=== PATIENT | male | born 1940 | race Caucasian/White ===

== ENCOUNTER 2018-07-30 16:57 | Outpatient (CLI) | payer MEDICARE | END 2018-07-30 16:58 | disposition critical access hospital (66) | LOC: EMS 16:57 | PROVIDERS: ATTEND Surgery | DX: R56.9 Unspecified convulsions (principal) | CPT/HCPCS: A0425; A0427 ==

== ENCOUNTER 2018-07-30 17:27 | Observation (INO) | payer MEDICARE, OTHER ==
[2018-07-30] MEDS ORDERED: LORazepam 2 MG/ML VIAL IVP STA ×2 (17:51→20:09)
--- NOTE | 2018-07-30 17:59 | ED Physician Documentation ---
History of Present Illness - Stated complaint Stated Complaint: SZ - Chief complaint Chief Complaint: Neuro - History obtained from History obtained from: Patient, EMS - History of Present Illness Timing: Today Pain level max: 0 Pain level now: 0 Improved by: nothing Worsened by: nothing - Additonal information Additional information: Patient is a 77-year-old male who drank a half of 1/5 of vodka per day. States has not drank any etoh today. Was riding in the car with a friend. Friend states seizure like activity for 30 seconds and brief post ictal state per EMS. Patient with no complaints. Review of Systems Ten Systems: 10 systems reviewed and negative Constitutional: denies: Fever, Chills Ears: denies: Ear pain Nose: denies: Rhinorrhea / runny nose, Congestion Throat: denies: Sore throat Cardiac: denies: Chest pain / pressure Respiratory: denies: Cough GI: denies: Nausea, Vomiting, Diarrhea Skin: denies: Rash Musculoskeletal: denies: Neck pain, Back pain Neurologic: denies: Headache PD PAST MEDICAL HISTORY - Past Medical History Past Medical History: Yes Neuro: CVA, Head injury - Past Surgical History Past Surgical History: Yes - Present Medications Home Medications: Ambulatory Orders Medication Instructions Recorded Confirmed No Known Home Medications 07/30/18 07/30/18 - Allergies Allergies/Adverse Reactions: Allergies Allergy/AdvReac Type Severity Reaction Status Date / Time No Known Drug Allergies Allergy Verified 07/30/18 17:36 - Social History Does the pt smoke?: No Smoking Status: Never smoker Does the pt drink ETOH?: Yes ETOH Use: Liquor Does the pt have substance abuse?: No - Immunizations Immunizations are current?: No PD ED PE NORMAL - Vitals Vital signs reviewed: Yes - General General: Alert and oriented X 3, No acute distress - HEENT HEENT: Moist mucous membranes - Neck Neck: Supple, no meningeal sign - Cardiac Cardiac: RRR, Strong equal pulses - Respiratory Respiratory: No respiratory distress, Clear bilaterally - Abdomen Abdomen: Soft, Non tender, Non distended - Derm Derm: Warm and dry - Neuro Neuro: Alert and oriented X 3, 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, No motor deficit, No sensory deficit, Normal speech Eye Opening: Spontaneous Motor: Obeys Commands Verbal: Oriented GCS Score: 15 - Psych Psych: Normal mood, Normal affect Results - Vitals Vitals: Vital Signs - 24 hr 07/30/18 07/30/18 07/30/18 17:28 18:33 19:32 Temperature 35.9 C L Heart Rate 102 H 101 H 104 H Respiratory 16 21 22 Rate Blood Pressure 188/113 H 158/92 H 171/112 H O2 Saturation 92 92 100 Oxygen O2 Source Nasal cannula Oxygen Flow Rate 2 - Labs Labs: Laboratory Tests 07/30/18 07/30/18 07/30/18 17:59 17:59 19:35 WBC 5.1 RBC 4.14 L Hgb 14.4 Hct 42.2 MCV 102.0 H MCH 34.7 H MCHC 34.0 RDW 14.7 Plt Count 176 MPV 7.8 Neut # (Auto) 3.5 Lymph # (Auto) 0.9 L [place] # (Auto) 0.6 Eos # (Auto) 0.0 Baso # (Auto) 0.1 Absolute Nucleated RBC 0.01 Nucleated RBC % 0.1 Sodium 131 L Potassium 2.5 L* Chloride 90 L Carbon Dioxide 24 Anion Gap 17.0 H BUN 21 H Creatinine 1.1 Estimated GFR (MDRD) 65 L Glucose 190 H Calcium 8.3 L Total Bilirubin 1.8 H AST 105 H ALT 89 H Alkaline Phosphatase 86 Total Protein 7.0 Albumin 3.9 Globulin 3.1 Albumin/Globulin Ratio 1.3 Lipase 26 Urine Color YELLOW Urine Clarity CLEAR Urine pH 5.5 Ur Specific [place] >=1.030 H Urine Protein 30 H Urine Glucose (UA) NEGATIVE Urine Ketones 40 H Urine Occult Blood SMALL H Urine Nitrite NEGATIVE Urine Bilirubin NEGATIVE Urine Urobilinogen 0.2 (NORMAL) Ur Leukocyte Esterase NEGATIVE Urine RBC 6-10 H Urine WBC 4-5 Ur Squamous Epith Cells FEW Squamous Urine Bacteria Few Urine Casts 26-50 Hyaline Casts Urine Mucus Few Strands Ur Microscopic Review INDICATED Urine Culture Comments NOT INDICATED Salicylates < 6.0 Urine Opiates Screen POSITIVE H Ur Oxycodone Screen NEGATIVE Urine Methadone Screen NEGATIVE Ur Propoxyphene Screen NEGATIVE Acetaminophen < 10 L Ur Barbiturates Screen NEGATIVE Ur Tricyclics Screen NEGATIVE Ur Phencyclidine Scrn NEGATIVE Ur Amphetamine Screen NEGATIVE U Methamphetamines Scrn NEGATIVE U Benzodiazepines Scrn NEGATIVE Urine Cocaine Screen NEGATIVE U Cannabinoids Screen NEGATIVE Ethyl Alcohol < 5.0 - Rads (name of study) head CT Radiology: Prelim report reviewed, EMP read contemporaneously, See rad report (No acute intracranial findings. An acute infarct may not be visible by CT. Follow-up examinations recommended as clinically indicated. Chronic changes described above. ) cxr Radiology: Prelim report reviewed, EMP read contemporaneously, See rad report (Normal single view chest. ) PD MEDICAL DECISION MAKING - ED course Complexity details: reviewed results, re-evaluated patient, considered differential, d/w patient, d/w access consultant ED course: Patient is a 77-year-old male who presents to the emergency department what sounds like a seizure today, likely alcohol withdrawal. He is also found to be significantly hypokalemic. This was started to be replaced in the emergency department. We will place him in observation for continued rehydration, replacement of potassium and likely MRI in the morning. Discussed the case with Dr. Maher, hospitalist who accepts. This document was made in part using voice recognition software. While efforts are made to proofread this document, sound alike and grammatical errors may occur. Departure - Departure Disposition: ED Place in Observation Clinical Impression: Hypokalemia, New onset seizure Condition: Stable Discharge Date/Time: 07/30/18 21:10
[2018-07-30 18:09] LABS: BASOPHILS # (AUTO) 0.1 10^3/uL (0.0-0.1); BASOPHILS % (AUTO) 1.9 %; EOSINOPHILS % (AUTO) 0.2 %; HGB - HEMOGLOBIN 14.4 g/dL (14.0-18.0); LYMPHOCYTES # (AUTO) 0.9 10^3/uL (1.5-3.5); LYMPHOCYTES % (AUTO) 17.6 %; MEAN CORPUSCULAR HEMOGLOBIN 34.7 pg (27.0-31.0); MEAN PLATELET VOLUME 7.8 fL (7.4-11.4); MONOCYTES # (AUTO) 0.6 10^3/uL (0.0-1.0); MONOCYTES % (AUTO) 11.7 %; NEUTROPHILS # (AUTO) 3.5 10^3/uL (1.5-6.6); NEUTROPHILS % (AUTO) 68.6 %; PLT - PLATELET COUNT 176 10^3/uL (130-450); RED BLOOD COUNT 4.14 10^6/uL (4.70-6.10); RED CELL DISTRIBUTION WIDTH 14.7 % (12.0-15.0); WHITE BLOOD COUNT 5.1 x10^3/uL (4.8-10.8)
[2018-07-30 18:28] LABS: ACETAMINOPHEN < 10 ug/mL (10-30); ALBUMIN 3.9 g/dL (3.2-5.5); ALBUMIN/GLOBULIN RATIO 1.3 (1.0-2.2); ALKALINE PHOSPHATASE 86 IU/L (42-121); ALT ALANINE AMINOTRANSFERASE 89 IU/L (10-60); AST ASPARTATE AMINOTRANSFERASE 105 IU/L (10-42); BILIRUBIN,TOTAL 1.8 mg/dL (0.2-1.0); BUN - BLOOD UREA NITROGEN 21 mg/dL (6-20); CALCIUM 8.3 mg/dL (8.5-10.3); CARBON DIOXIDE - CO2 24 mmol/L (21-32); CHLORIDE 90 mmol/L (101-111); CREATININE 1.1 mg/dL (0.6-1.2); GFR - MDRD 65 (>89); GLUCOSE 190 mg/dL (70-100); LIPASE 26 U/L (22-51); SALICYLATE < 6.0 mg/dL; SODIUM 131 mmol/L (135-145)
[2018-07-30] MEDS ORDERED: POTASSIUM BICARB 25 MEQ TABLET PO STA (18:36)
[2018-07-30] MEDS ORDERED: SODIUM CHLORIDE 0.9% 1,000 ML IV ONE (18:36)
[2018-07-30] MEDS ORDERED: POTASSIUM CHLOR 10 MEQ/100 ML 10 MEQ/100 ML BAG IV ONE (18:36)
--- NOTE | 2018-07-30 18:42 | XRAY Report ---
Reason: hypoxia Procedure Date: 07/30/2018 Accession Number: [id number] / [id number] Procedure: XR - Chest 1 View X-Ray CPT Code: 43401 FULL RESULT: EXAM: CHEST RADIOGRAPHY EXAM DATE: 07/30/2018 06:25 PM. CLINICAL HISTORY: Hypoxia. COMPARISON: None. TECHNIQUE: 1 view. FINDINGS: Lungs/Pleura: No focal opacities evident. No pleural effusion. No pneumothorax. Mediastinum: Within exam limitations, the cardiomediastinal contour is normal. IMPRESSION: Normal single view chest. RADIA
--- NOTE | 2018-07-30 18:56 | CT Report ---
Reason: seizure Procedure Date: 07/30/2018 Accession Number: [id number] / [id number] Procedure: CT - Head W/O CPT Code: FULL RESULT: EXAM: CT HEAD EXAM DATE: 07/30/2018 06:31 PM. CLINICAL HISTORY: Seizure. COMPARISON: None available. TECHNIQUE: Multiaxial CT images were obtained from the foramen magnum to the vertex. Reformats: Sagittal and coronal. IV contrast: None. In accordance with CT protocol optimization, one or more of the following dose reduction techniques were utilized for this exam: automated exposure control, adjustment of mA and/or KV based on patient size, or use of iterative reconstructive technique. FINDINGS: Parenchyma: No acute intraparenchymal hemorrhage. No evidence of mass or midline shift. There is encephalomalacia involving the left frontal and parietal lobes, likely from prior ischemic or traumatic injury. Hypodense changes to the periventricular white matter can be seen with chronic small vessel ischemic disease. Generalized cerebral volume loss. Extraaxial Spaces: No subdural or epidural collections identified. Ventricles: Normal in size and position. Sinuses and Orbits: There is a retention cyst or polyp in the anterior sphenoid sinus. Mild mucosal thickening in the ethmoid air cells. Bones: No evidence of fracture or calvarial defect. Other: None. IMPRESSION: No acute intracranial findings. An acute infarct may not be visible by CT. Follow-up examinations recommended as clinically indicated. Chronic changes described above. RADIA
[2018-07-30 19:45] LABS: MUDS CUTOFF CONCENTRATIONS CUTOFF CONC BELOW:
[2018-07-30 19:56] LABS: GLUCOSE, URINE (UA) NEGATIVE (NEGATIVE); KETONES,URINE (UA) 40 mg/dL (NEGATIVE); LEUKOCYTE ESTERASE, URINE NEGATIVE (NEGATIVE); NITRITE,URINE NEGATIVE (NEGATIVE); OCCULT BLOOD,URINE SMALL (NEGATIVE); PH,URINE 5.5 PH (5.0-7.5); PROTEIN,URINE 30 mg/dL (NEGATIVE); UROBILINOGEN,URINE 0.2 (NORMAL) E.U./dL (NORMAL)
[2018-07-30 20:00] LABS: BILIRUBIN,URINE NEGATIVE (NEGATIVE); CLARITY,URINE CLEAR (CLEAR); ICTOTEST,URINE NEGATIVE
[2018-07-30 20:07] LABS: AMPHETAMINE SCREEN,URINE NEGATIVE (NEGATIVE); BENZODIAZEPINES SCREEN, URINE NEGATIVE (NEGATIVE); COCAINE SCREEN URINE NEGATIVE (NEGATIVE); METHADONE SCREEN, URINE NEGATIVE (NEGATIVE); METHAMPHETAMINES SCREEN, URINE NEGATIVE (NEGATIVE); OPIATE SCREEN, URINE POSITIVE (NEGATIVE); OXYCODONE SCREEN, URINE NEGATIVE (NEGATIVE); PROPOXYPHENE SCREEN, URINE NEGATIVE (NEGATIVE); TRICYCLIC ANTIDEPRESSANT,URINE NEGATIVE (NEGATIVE)
[2018-07-30 20:09] LABS: BACTERIA,URINE Few /HPF (None Seen); CASTS, URINE 26-50 Hyaline Casts /LPF; MUCUS,URINE Few Strands; SQUAMOUS EPITHELIAL CELL,UR FEW Squamous (<= Few)
[2018-07-30] MEDS ORDERED: PANTOPRAZOLE 40 MG VIAL IVP STA (20:11)
[2018-07-30] MEDS ORDERED: FOLIC ACID INJ 1 MG, THIAMINE INJ 100 MG, MAGNESIUM SULFATE 2 GM, MULTIVITAMIN 10 ML in... IV STA ×5 (20:12)
[2018-07-30] MEDS ORDERED: ZOLPIDEM 5 MG TABLET PO PRN (20:15)
[2018-07-30] MEDS ORDERED: MORPHINE 2 MG/ML CARPUJECT IVP PRN (20:15)
[2018-07-30] MEDS ORDERED: PROCHLORPERAZINE 10 MG/2 ML VIAL IVP PRN (20:15)
[2018-07-30] MEDS ORDERED: ONDANSETRON 4 MG/2 ML VIAL IVP PRN (20:15)
[2018-07-30] MEDS ORDERED: oxyCODONE 5 MG TABLET PO PRN (20:15)
[2018-07-30] MEDS ORDERED: ACETAMINOPHEN 325 MG TABLET PO PRN (20:15)
[2018-07-30] MEDS ORDERED: LORazepam 2 MG/ML VIAL IVP PRN (20:22)
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
[2018-07-30 23:21] LABS: CALCIUM 7.9 mg/dL (8.5-10.3); CREATININE 0.8 mg/dL (0.6-1.2)
[2018-07-31] MEDS: SODIUM CHLORIDE FLUSH 0.9% 10 ML SYRINGE IVP SCH ×3 (01:28→16:36)
[2018-07-31 05:42] LABS: BASOPHILS # (AUTO) 0.1 10^3/uL (0.0-0.1); EOSINOPHILS % (AUTO) 0.3 %; HGB - HEMOGLOBIN 13.5 g/dL (14.0-18.0); LYMPHOCYTES # (AUTO) 1.2 10^3/uL (1.5-3.5); LYMPHOCYTES % (AUTO) 22.7 %; MEAN CORPUSCULAR HEMOGLOBIN 34.9 pg (27.0-31.0); MEAN CORPUSCULAR HGB CONC 34.1 g/dL (32.0-36.0); MEAN CORPUSCULAR VOLUME 102.5 fL (80.0-94.0); MEAN PLATELET VOLUME 8.2 fL (7.4-11.4); MONOCYTES # (AUTO) 0.8 10^3/uL (0.0-1.0); MONOCYTES % (AUTO) 15.7 %; NEUTROPHILS # (AUTO) 3.1 10^3/uL (1.5-6.6); NEUTROPHILS % (AUTO) 60.3 %; PLT - PLATELET COUNT 175 10^3/uL (130-450); RED BLOOD COUNT 3.88 10^6/uL (4.70-6.10); RED CELL DISTRIBUTION WIDTH 14.5 % (12.0-15.0); WHITE BLOOD COUNT 5.2 x10^3/uL (4.8-10.8)
[2018-07-31 05:57] LABS: ALBUMIN 3.6 g/dL (3.2-5.5); ALBUMIN/GLOBULIN RATIO 1.2 (1.0-2.2); ALKALINE PHOSPHATASE 76 IU/L (42-121); ALT ALANINE AMINOTRANSFERASE 75 IU/L (10-60); AST ASPARTATE AMINOTRANSFERASE 65 IU/L (10-42); BILIRUBIN,TOTAL 1.8 mg/dL (0.2-1.0); BUN - BLOOD UREA NITROGEN 18 mg/dL (6-20); CARBON DIOXIDE - CO2 27 mmol/L (21-32); CHLORIDE 96 mmol/L (101-111); CHOL/HDL RATIO 3.5 (<5.0); CHOLESTEROL 211 mg/dL; CREATININE 0.8 mg/dL (0.6-1.2); GFR - MDRD 94 (>89); GLUCOSE 95 mg/dL (70-100); HDL CHOLESTEROL 61 mg/dL; LDL CHOLESTEROL,CALCULATED 136 mg/dL; LDL/HDL RATIO 2.2 (<3.6); SODIUM 133 mmol/L (135-145); TOTAL PROTEIN 6.5 g/dL (6.7-8.2); VLDL CHOLESTEROL 14 mg/dL
[2018-07-31] MEDS: PANTOPRAZOLE 40 MG VIAL IVP SCH (06:16)
[2018-07-31] MEDS: SODIUM CHLORIDE FLUSH 0.9% 10 ML SYRINGE IVP PRN (06:25)
[2018-07-31] MEDS ORDERED: POTASSIUM CHLORIDE INJ 40 MEQ in SODIUM CHLORIDE 0.9% 480 ML IV ONE (06:39)
[2018-07-31] MEDS ORDERED: POTASSIUM CHLOR 10 MEQ/100 ML 10 MEQ/100 ML BAG IV ONE (07:04)
[2018-07-31] MEDS ORDERED: GADOBUTROL 7.5 MMOL/7.5 ML VIAL ONE (08:33)
[2018-07-31] MEDS ORDERED: amLODIPine 5 MG TABLET PO SCH (09:00)
[2018-07-31] MEDS ORDERED: GADOBUTROL 7.5 MMOL/7.5 ML VIAL IVP ONE (09:19)
[2018-07-31] MEDS: POLYETHYLENE GLYCOL 3350 17 GM PACKET PO SCH (09:25)
--- NOTE | 2018-07-31 10:09 | MRI Report ---
Reason: New seizure, r/o CVA Procedure Date: 07/31/2018 Accession Number: [id number] / [id number] Procedure: MRI - Brain W/WO CPT Code: FULL RESULT: EXAM: MRI BRAIN WITHOUT AND WITH CONTRAST EXAM DATE: 07/31/2018 09:16 AM. CLINICAL HISTORY: 77-year-old man with confusion and seizure. Concern for stroke. COMPARISON: HEAD W/O 07/30/2018 6:03 PM. TECHNIQUE: Multiplanar, multisequence T1-weighted and fluid-sensitive MR sequences of the brain were performed. Sequences optimized for routine evaluation. Other: None. IV Contrast: 7.5 cc Gadavist. FINDINGS: Parenchyma: Small focus of restricted diffusion with mild corresponding FLAIR hyperintensity is present in the left postcentral gyrus subcortical white matter, consistent with acute lacunar infarct. This measures approximately 4 mm in diameter. Geographic regions of encephalomalacia are present in the left frontal operculum and anterior insula as well as the left temporoparietal junction, as seen on the prior CT and consistent with remote infarcts in the left MCA territory. Otherwise, the parenchyma demonstrates mild to moderate burden of nonspecific FLAIR hyperintensities in the deep cerebral and periventricular white matter, most consistent with sequelae of chronic small vessel ischemic disease and a common finding in this age group. Small remote hemorrhage is present in the inferior left cerebellar hemisphere. No abnormal enhancement. Pituitary: Unremarkable. Ventricles and Extra-axial Spaces: The ventricles are symmetric and normal in size for age except for mild expec dilation of the left lateral ventricle. Extra-axial spaces are unremarkable. No abnormal enhancement. Orbits: Unremarkable. Sinuses: Small mucous retention cysts are present in the left maxillary sinus and posterior nasal cavity. Mastoid air cells are clear. Major Vascular Flow Voids: Intact. Dural Venous Sinuses and Major Central Veins: Patent on post-contrast images. IMPRESSION: 1. Small acute lacunar infarct in the left parietal subcortical white matter. No acute hemorrhage. 2. Geographic regions of encephalomalacia in the left frontal operculum and anterior insula as well as the left temporoparietal junction, consistent with remote left MCA infarcts. 3. Small remote hemorrhage in the left cerebellar hemisphere. CRITICAL RESULT: Covering provider could not be reached at 9:45 and 10:00 on 07/31/2018. Voicemails were left. RADIA
[2018-07-31 12:10] LABS: CALCIUM 8.1 mg/dL (8.5-10.3); CREATININE 0.7 mg/dL (0.6-1.2)
[2018-07-31] MEDS: ATORVASTATIN 40 MG TABLET PO SCH (12:20)
--- NOTE | 2018-07-31 14:45 | Ultrasound Report ---
Reason: + CVA Procedure Date: 07/31/2018 Accession Number: [id number] / [id number] Procedure: US - Carotid Doppler Complete CPT Code: FULL RESULT: EXAM: BILATERAL CAROTID AND VERTEBRAL ARTERY DUPLEX DOPPLER ULTRASOUND: EXAM DATE: 07/31/2018 12:24 PM CLINICAL HISTORY: Positive CVA. COMPARISON: None. TECHNIQUE: Grayscale imaging, color Doppler, and duplex spectral Doppler were used to evaluate the carotid and vertebral arteries bilaterally. Static images were obtained. FINDINGS: Grayscale images of the right common carotid artery demonstrate intimal thickening with one image suggesting a linear intraluminal density, image 5 series 1. A color Doppler image taken at the same level demonstrates irregular bidirectional flow, possibly an artifact due to the angle of insonation, similar findings are repeated for the right ICA in the region of the bifurcation. Grayscale and color Doppler images of the left carotid system demonstrate mild intimal thickening and hypoechoic atherosclerosis subjectively less than 50%. Normal antegrade flow is present in bilateral vertebral arteries. VELOCITIES (cm/sec): Right CCA mid: PSV 105 cm/sec CCA dist: PSV 108 cm/sec ICA prox: PSV 49 cm/sec, EDV 13 cm/sec ICA mid: PSV 83 cm/sec, EDV 17 cm/sec ICA dist: PSV 59 cm/sec, EDV 13 cm/sec ECA: PSV 143 cm/sec Vert: PSV 43 cm/sec ICA/CCA: 0.77 Left CCA mid: PSV 81 cm/sec CCA dist: PSV 60 cm/sec ICA prox: PSV 47 cm/sec, EDV 13 cm/sec ICA mid: PSV 59 cm/sec, EDV 14 cm/sec ICA dist: PSV 65 cm/sec, EDV 18 cm/sec ECA: PSV 88 cm/sec Vert: PSV 54 cm/sec ICA/CCA: 1.08 ICA diameter stenosis: Right: <50% by velocity and <70% by NASCET criteria. Left: <50% by velocity and <70% by NASCET criteria. IMPRESSION: 1. Subjectively less than 50% predominantly hypoechoic atherosclerotic plaque bilaterally. 2. In the right carotid artery there are no elevated carotid artery velocities to suggest hemodynamically significant stenosis. 3. In the left carotid artery there are no elevated carotid artery velocities to suggest hemodynamically significant stenosis. 4. Normal antegrade flow is present in bilateral vertebral arteries. 5. Suggestion of intraluminal flap on one image of the right internal carotid artery system with multicolor irregular appearance of color Doppler interrogation of the right internal carotid artery system. While these findings may be artifactual, CTA of the head and neck to exclude the possibility of dissection is recommended. General Recommendations: Stenosis =50% ICA - Follow-up ultrasound 6-12 months Stenosis <50% ICA - High Risk Patient with plaque - Follow-up ultrasound 1-2 years Normal Study but High Risk Patient - Follow-up ultrasound 3-5 years Management recommendations and diagnostic criteria are based on current IAC endorsed standards in Carotid Artery Stenosis: Grayscale and Doppler Ultrasound Diagnosis. Validated velocity measurements with angiographic measurements and velocity criteria are extrapolated from diameter data as defined by the Society of Radiologists in Ultrasound Consensus Conference Radiology 2003; 229;340-346. RADIA
[2018-07-31] MEDS ORDERED: IOVERSOL 320 100 ML VIAL IVP ONE ×3 (14:53→16:26)
--- NOTE | 2018-07-31 17:25 | CT Report ---
Reason: evaluate for dissection w/ +CVA Procedure Date: 07/31/2018 Accession Number: [id number] / [id number] Procedure: CT - Neck Angio CPT Code: FULL RESULT: EXAM: CT ANGIOGRAM NECK EXAM DATE: 07/31/2018 04:23 PM. CLINICAL HISTORY: History of stroke. Clinical concern stated on the requisition for arterial dissection. COMPARISON: No prior CTA. TECHNIQUE: Routine axial helical imaging was performed from the skull base through the aortic arch. Reconstructions: Routine multiplanar 3D MIP reconstructions. IV Contrast: 80 mL Optiray 320. Evaluation of arterial stenosis is based on a NASCET method of measurement. In accordance with CT protocol optimization, one or more of the following dose reduction techniques were utilized for this exam: automated exposure control, adjustment of mA and/or KV based on patient size, or use of iterative reconstructive technique. FINDINGS: Mild atherosclerotic calcifications at the top of the aortic arch. The origins of the great vessels are grossly patent. Unremarkable appearance of the cervical vertebral arteries, no acute abnormality or focal flow-limiting stenosis. No acute abnormality or focal flow-limiting stenosis of the cervical carotid arteries, no dissection. Prominent chronic multilevel hypertrophic degenerative cervical spinal spondylosis. Incidental note of a torus mandibularis. IMPRESSION: No acute abnormality or significant stenosis of the cervical vertebral or carotid arteries. No evidence for dissection. RADIA
--- NOTE | 2018-07-31 17:34 | CT Report ---
Reason: evaluate for dissection w/ +CVA Procedure Date: 07/31/2018 Accession Number: [id number] / [id number] Procedure: CT - Head Angio CPT Code: FULL RESULT: EXAM: CT ANGIOGRAM HEAD. CT SCAN OF THE HEAD WITHOUT AND WITH CONTRAST. EXAM DATE: 07/31/2018 04:23 PM CLINICAL HISTORY: History of stroke. Concern for arterial dissection stated on the exam requisition. COMPARISON: HEAD W/O 07/30/2018 6:03 PM BRAIN W/WO 07/31/2018 8:43 AM. TECHNIQUE: - CT Scan Head: Using a multidetector scanner, axial images were acquired from the foramen magnum to the skull vertex prior to and following contrast administration. - CT Angiogram: Using a multidetector scanner, high-resolution axial images were acquired from the skull base through vertex following rapid infusion of intravenous contrast. Reformats: Multiplanar MIP reformats were reconstructed. Nascet criteria used for stenosis measurement. IV Contrast: 80 mL Optiray 320. In accordance with CT protocol optimization, one or more of the following dose reduction techniques were utilized for this exam: automated exposure control, adjustment of mA and/or KV based on patient size, or use of iterative reconstructive technique. FINDINGS: Brain CT without contrast: No significant change. There are findings of old infarcts in the left cerebral hemisphere. Stable atrophy. No acute hemorrhage. Brain CT with IV contrast: No abnormal enhancement. Head CT angiogram: The distal internal carotid arteries are patent. No intracranial vertebrobasilar insufficiency. Prominent right posterior communicating artery. 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 No evidence for cerebral aneurysm or intracranial large vessel occlusion. No proximal large branch artery focal flow-limiting stenosis. IMPRESSION: 1. No evidence for intracranial large artery occlusion, focal flow-limiting stenosis or dissection. 2. No abnormal intracranial enhancement or acute hemorrhage. 3. Chronic age-related changes including atrophy and findings of old infarcts in the left cerebral hemisphere. RADIA
[2018-07-31] MEDS: MULTIVITAMIN 10 ML, THIAMINE INJ 100 MG, FOLIC ACID INJ 1 MG in SODIUM CHLORIDE 0.9% 1,... IV SCH (17:39)
[2018-07-31] MEDS: BEER 355 ML BOTTLE PO SCH (17:39)
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
[2018-07-31] MEDS: ASPIRIN EC 325 MG TABLET PO SCH (19:05)
[2018-08-01] MEDS: SODIUM CHLORIDE FLUSH 0.9% 10 ML SYRINGE IVP SCH ×2 (03:42→08:13)
[2018-08-01] MEDS: SODIUM CHLORIDE FLUSH 0.9% 10 ML SYRINGE IVP PRN ×2 (06:11→06:15)
[2018-08-01] MEDS: PANTOPRAZOLE 40 MG VIAL IVP SCH (06:11)
[2018-08-01 06:27] LABS: BASOPHILS # (AUTO) 0.1 10^3/uL (0.0-0.1); EOSINOPHILS % (AUTO) 0.8 %; HGB - HEMOGLOBIN 13.2 g/dL (14.0-18.0); LYMPHOCYTES # (AUTO) 1.2 10^3/uL (1.5-3.5); LYMPHOCYTES % (AUTO) 26.9 %; MEAN CORPUSCULAR HEMOGLOBIN 35.2 pg (27.0-31.0); MEAN CORPUSCULAR HGB CONC 34.1 g/dL (32.0-36.0); MEAN CORPUSCULAR VOLUME 103.4 fL (80.0-94.0); MEAN PLATELET VOLUME 7.6 fL (7.4-11.4); MONOCYTES # (AUTO) 0.7 10^3/uL (0.0-1.0); MONOCYTES % (AUTO) 16.3 %; NEUTROPHILS # (AUTO) 2.4 10^3/uL (1.5-6.6); PLT - PLATELET COUNT 165 10^3/uL (130-450); RED BLOOD COUNT 3.75 10^6/uL (4.70-6.10); RED CELL DISTRIBUTION WIDTH 14.4 % (12.0-15.0); WHITE BLOOD COUNT 4.4 x10^3/uL (4.8-10.8)
[2018-08-01 07:20] LABS: ALBUMIN 3.5 g/dL (3.2-5.5); ALBUMIN/GLOBULIN RATIO 1.3 (1.0-2.2); BILIRUBIN,TOTAL 1.7 mg/dL (0.2-1.0); CALCIUM 8.1 mg/dL (8.5-10.3); CREATININE 0.5 mg/dL (0.6-1.2); TOTAL PROTEIN 6.2 g/dL (6.7-8.2)
[2018-08-01] MEDS ORDERED: POTASSIUM CHLORIDE 20 MEQ TABLET PO SCH (08:00)
[2018-08-01] MEDS: ASPIRIN EC 325 MG TABLET PO SCH (08:13)
[2018-08-01] MEDS: POLYETHYLENE GLYCOL 3350 17 GM PACKET PO SCH (08:13)
[2018-08-01] MEDS: BEER 355 ML BOTTLE PO SCH (08:13)
[2018-08-01] MEDS: ATORVASTATIN 40 MG TABLET PO SCH (08:13)
[2018-08-01 08:21] VITALS: BP 188/108
[2018-08-01] MEDS: MULTIVITAMIN 10 ML, THIAMINE INJ 100 MG, FOLIC ACID INJ 1 MG in SODIUM CHLORIDE 0.9% 1,... IV SCH (09:12)
--- NOTE | 2018-08-01 10:53 | DISCHARGE SUMMARY ---
Discharge Summary Admit Date: 07/30/18 Discharge Date: 08/01/18 Discharging Provider: HEMA Villa Primary Care Provider: Dr. Parker Code Status: Attempt Resuscitation Condition at Discharge: Good Discharge Disposition: 01 Home, Self Care - DIAGNOSES Admission Diagnoses: Unspecified convulsions (R56.9) Hypokalemia (E87.6) Alcohol abuse, uncomplicated (F10.10) Cardiac arrhythmia, unspecified (I49.9) Discharge Diagnoses with Status of Each Condition: Parietal lobe infarction (I63.89) new on this admission, confirmed with head MR I. Acute lacunar infarction (I63.81) new on this admission, confirmed with head MRI. Hypertension (I10) chronic, recommend treatment. Tremors of nervous system (R25.1) baseline, chronic and stable. Expressive aphasia (R47.01) not profound, but patient admits to this as being new on this admission. Alcohol abuse (F10.10) chronic, encouraged cessation. Hypokalemia (E87.6) ongoing, recommend daily supplement. Medical non-compliance (Z91.19) chronic, patient seemed agreeable upon discharge to getting his pills picked up and seeing a PCP in the near future. - HPI History of Present Illness: HPI per Dr. Maher: Russ Bernard is a 77-year-old male who reports no known past medical history, though he admits he has not seen a doctor for a checkup in some time, who apparently had a seizure earlier today.Patient is a relatively independent 77-year-old male who [place] but has family friends who do assist him who also were present at the time of admission and assisted me with the history. 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 Suddenly he reported that the pain was gone without any explanation. Shortly after that within about 20 minutes they started driving into town when Russ, the patient, began to convulse, tilted his head back, and became nonresponsive and had what appeared to the friend and the friend's son to be a seizure which lasted approximately 1 minute. They pulled over, stabilized the patient who was no longer seizing but did seem to be confused and was snoring and what sounds to be post ictal, and paramedics were called. He was brought by EMS to the emergency room and the patient getting wheeled into the emergency room as the first thing that the patient remembers. In the ER he was no longer seizing but he was somewhat hypoxic with a pulse ox in the 88% and an evaluation with a head CT and basic labs was performed. CT scan was unremarkable but the labs did demonstrate a potassium level of 2.8 as well as an elevated MCV.Otherwise the objective data was relatively unremarkable however ED physician called us to admit for a MRI in the morning and for observation. Of note the patient does have a history of alcoholism drinking about 1/5 of vodka per night, and apparently according to the POA, he had a admission last year at [facility] where he was intubated for alcohol withdrawal. - HOSPITAL COURSE Hospital Course: The patient was found to have an acute left parietal lobe infarction with his only deficit being mild expressive dysphasia and baseline tremors. He stayed 2 night to allow for his blood pressure to remain elevated and discharged on the appropriate medications to prevent further strokes and control blood pressure. He was encouraged to establish care with a PCP, of which he has previously seen Dr. Parker. He was medically stable and there was no need for either PT or OT since he was ambulatory and of clear mind. He was transported home with a friend. - ALLERGIES Allergies/Adverse Reactions: Allergies Allergy/AdvReac Type Severity Reaction Status Date / Time No Known Drug Allergies Allergy Verified 07/30/18 17:36 - MEDICATIONS Home Medications: Ambulatory Orders Medication Instructions Recorded Confirmed Aspirin EC [Ecotrin] 325 mg PO DAILY #30 tablet 08/01/18 Atorvastatin [Lipitor] 40 mg PO DAILY #30 tablet 08/01/18 Potassium Chloride [K-Dur] 20 meq PO TIDWM #30 tablet 08/01/18 amLODIPine [Norvasc] 5 mg PO DAILY #30 tablet 08/01/18 - PHYSICAL EXAM AT DISCHARGE General Appearance: positive: No acute distress, Alert Eyes Bilateral: positive: PERRL, Other ENT: positive: ENT inspection nml, Pharynx nml, No signs of dehydration Neck: positive: Thyroid nml, No JVD, Trachea midline Respiratory: positive: Chest non-tender, No respiratory distress, Breath sounds nml Cardiovascular: positive: Regular rate & rhythm, No gallop, Systolic murmur Peripheral Pulses: positive: 2+ Abdomen: positive: Non-tender, No organomegaly, Nml bowel sounds Back: positive: Nml inspection Skin: positive: Color nml, No rash, Warm, Dry Extremities: positive: Non-tender, Full ROM, Nml appearance, No pedal edema Neurologic/Psychiatric: positive: Oriented x3, CN's nml (2-12), Motor nml, Sensation nml, Mood/affect nml, Weakness, Slurred/abnml speech (decreased response times during conversation. Safety awareness appropriate.), Depressed mood/affect Reflexes: Bicep (R): 3+, Bicep (L): 3+, Ankle (R): 3+, Ankle (L): 3+ - LABS Result Diagrams: 08/01/18 06:08 08/01/18 06:08 - DIAGNOSTIC IMAGING Diagnostic Imaging Results: Final report reviewed Diagnostic Imaging Results Comments: EXAM: CHEST RADIOGRAPHY EXAM DATE: 07/30/2018 06:25 PM. IMPRESSION: Normal single view chest. EXAM: CT HEAD EXAM DATE: 07/30/2018 06:31 PM. IMPRESSION: No acute intracranial findings. An acute infarct may not be visible by CT. Follow-up examinations recommended as clinically indicated. Chronic changes described above. EXAM: MRI BRAIN WITHOUT AND WITH CONTRAST EXAM DATE: 07/31/2018 09:16 AM. IMPRESSION: 1. Small acute lacunar infarct in the left parietal subcortical white matter. No acute hemorrhage. 2. Geographic regions of encephalomalacia in the left frontal operculum and anterior insula as well as the left temporoparietal junction, consistent with remote left MCA infarcts. 3. Small remote hemorrhage in the left cerebellar hemisphere. EXAM: BILATERAL CAROTID AND VERTEBRAL ARTERY DUPLEX DOPPLER ULTRASOUND: EXAM DATE: 07/31/2018 12:24 PM IMPRESSION: 1. Subjectively less than 50% predominantly hypoechoic atherosclerotic plaque bilaterally. 2. In the right carotid artery there are no elevated carotid artery velocities to suggest hemodynamically significant stenosis. 3. In the left carotid artery there are no elevated carotid artery velocities to suggest hemodynamically significant stenosis. 4. Normal antegrade flow is present in bilateral vertebral arteries. 5. Suggestion of intraluminal flap on one image of the right internal carotid artery system with multicolor irregular appearance of color.Doppler interrogation of the right internal jackson tid artery system. While these findings may be artifactual, CTA of the head and neck to exclude the possibility of dissection is recommended. EXAM: CT ANGIOGRAM NECK EXAM DATE: 07/31/2018 04:23 PM. IMPRESSION: No acute abnormality or significant stenosis of the cervical vertebral or carotid arteries. No evidence for dissection. EXAM: CT ANGIOGRAM HEAD. CT SCAN OF THE HEAD WITHOUT AND WITH CONTRAST. EXAM DATE: 07/31/2018 04:23 PM IMPRESSION: 1. No evidence for intracranial large artery occlusion, focal flow- limiting stenosis or dissection. 2. No abnormal intracranial enhancement or acute hemorrhage. 3. Chronic age-related changes including atrophy and findings of old infarcts in the left cerebral hemisphere. ECHOCARDIOGRAM: Preliminary results from 07/31/18 show no atrial shunt during a bubble study, EF 55-60%, and grade 1 diastolic dysfunction. - SEPSIS Current Stage of Sepsis: Ruled out - FOLLOW UP Follow Up: Disposition: Home, Self CareCondition: Good Prescriptions: amLODIPine [Norvasc] 5 mg PO DAILY #30 tablet Aspirin EC [Ecotrin] 325 mg PO DAILY #30 tablet Atorvastatin [Lipitor] 40 mg PO DAILY #30 tablet Potassium Chloride [K-Dur] 20 meq PO TIDWM #30 tablet Additional Instructions or Follow Up instructions: You have suffered a small stroke in the left parietal lobe which is located on the top of your head. The most likely cause of this uncontrolled blood pressure. To prevent further damage, we have allowed your blood pressure to remain high while in the hospital which should stay that way for about 3 days past your initial stroke. Please start your new blood pressure medication on Thursday August 02, 2018 in the evening and continue daily. Your potassium was low for an unknown reason while in the hospital, but the most likely reason is that may have not been eating well leading up to this admission. Please take a daily supplement until you see a primary care provider. Please take a medication to keep the plaques in your blood low to prevent strokes, and this can be taken at night. Please take a full strength aspirin daily to prevent further strokes. Please do your best to cut back drinking alcohol as this can lead to further s trokes. Please set up a primary care provider appointment within a week and let them you know you have just had a stroke and that you are on new mediations to help with getting in quickly. - TIME SPENT Time Spent in Discharge (Minutes): 60
--- NOTE | 2018-08-01 10:56 | Discharge Plan ---
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 The most likely cause of this uncontrolled blood pressure. To prevent further damage, we have allowed your blood pressure to remain high while in the hospital which should stay that way for about 3 days past your initial stroke. Please start your new blood pressure medication on Thursday August 02, 2018 in the evening and continue daily. Your potassium was low for an unknown reason while in the hospital, but the most likely reason is that may have not been eating well leading up to this admission. Please take a daily supplement until you see a primary care provider. Please take a medication to keep the plaques in your blood low to prevent strokes, and this can be taken at night. Please take a full strength aspirin daily to prevent further strokes. Please do your best to cut back drinking alcohol as this can lead to further strokes. Please set up a primary care provider appointment within a week and let them you know you have just had a stroke and that you are on new mediations to help with getting in quickly. No Smoking: If you smoke, Please STOP! Call for help.
[2018-08-01 16:57] LABS: HEMOGLOBIN A1C 0.54 g/dL; HEMOGLOBIN A1C % 5.7 % (4.6-6.2)
== END 2018-08-01 13:08 | disposition home or self-care (01) ==
LOC: EDUNIT# → ED 17:27 → MS2 20:15
PROVIDERS: ADMIT Family Medicine Sports Medicine; ATTEND Nurse Practitioner
DX: I63.81 Other cerebral infarction due to occlusion or stenosis of small artery (principal); R47.01 Aphasia; I10 Essential (primary) hypertension; R25.1 Tremor, unspecified; F10.20 Alcohol dependence, uncomplicated; E87.6 Hypokalemia; R09.02 Hypoxemia; Z86.73 Personal history of transient ischemic attack (TIA), and cerebral infarction without residual deficits; I49.9 Cardiac arrhythmia, unspecified; Z91.19 Patient's noncompliance with other medical treatment and regimen
CPT/HCPCS: 36415; 70450; 70496; 70498; 70553; 71045; 80048; 80053; 80061; 81001; 83036; 83690; 84443; 85025; 93005; 93306; 93880; 96361; 96365; 96366; 96367; 96375; 96376; 99284; A9270; A9585; G0378; J2060; J3411; Q9967; 80306; 80307; 80320; 80329; 81003; 83721; 87086; 99285

== ENCOUNTER 2019-08-02 18:45 | Outpatient (CLI) | payer MEDICARE | END 2019-08-02 18:46 | disposition short-term general hospital (02) | LOC: EMS 18:45 | PROVIDERS: ATTEND Surgery | DX: R53.1 Weakness (principal); M54.2 Cervicalgia | CPT/HCPCS: A0425; A0427 ==